=== PATIENT | female | born 1960 | race Caucasian/White ===

== ENCOUNTER 2020-07-16 08:44 | Emergency (ER) | payer OTHER ==
[~2020-07-16] VITALS: Ht 170.2 cm; Wt 90.0 kg
--- NOTE | 2020-07-16 09:08 | NUR ---
PT BROUGHT BACK TO ROOM FROM TRIAGE. PT CO LOW BACK/FLANK PAIN X3 DAYS. PT STATES IT HURTS TO SIT AND SHE IS UNABLE TO SLEEP AT NIGHT BECAUSE OF THE PAIN. PT DENIES ANY NUMBNESS/TINGLING, WEAKNESS OR ANY PAINFUL/BLOODY URINATION.
[2020-07-16] MEDS ORDERED: CYCLOBENZAPRINE 10 MG TABLET PO ONE (09:30)
[2020-07-16] MEDS ORDERED: KETOROLAC 30 MG/1 ML IM ONE (09:30)
[2020-07-16] MEDS ORDERED: CYCLOBENZAPRINE 10 MG TABLET ONE (09:32)
[2020-07-16] MEDS ORDERED: KETOROLAC 30 MG/1 ML ONE (09:32)
[2020-07-16 09:41] LABS: BASOPHILS % (AUTO) 1 % (0-1); EOSINOPHILS % (AUTO) 2 % (1-7); LYMPHOCYTES % (AUTO) 33 % (22-44); MEAN CORPUSCULAR HEMOGLOBIN 30.3 pg (27.0-34.8); MEAN CORPUSCULAR HGB CONC 33.5 g/dL (32.4-35.8); MEAN PLATELET VOLUME 8.1 fL (7.4-10.4); MONOCYTES % (AUTO) 6 % (2-9); NEUTROPHILS % (AUTO) 57 % (42-75); PLATELET COUNT 238 x10^3/uL (130-400); RED CELL DISTRIBUTION WIDTH 13.4 % (9.6-15.2)
[2020-07-16 09:42] LABS: MD NO
[2020-07-16 09:48] LABS: MICROSCOPIC AUTO
[2020-07-16 09:51] LABS: ALBUMIN 3.9 g/dL (3.4-5.0); CALCIUM 8.7 mg/dL (8.5-10.1)
[2020-07-16 09:54] LABS: ALANINE AMINOTRANSFERASE 21 U/L (12-78); ALKALINE PHOSPHATASE 47 U/L (45-117); BILIRUBIN,TOTAL 0.5 mg/dL (0.2-1.0); CREATININE 0.64 mg/dL (0.55-1.02)
[2020-07-16 09:59] LABS: ANION GAP 5 mmol/L (5-15); CHLORIDE 111 mmol/L (98-107)
--- NOTE | 2020-07-16 10:15 | NUR ---
US AT BEDSIDE
[2020-07-16 10:30] VITALS: BP 137/72
--- NOTE | 2020-07-16 11:21 | NUR ---
DISCHARGE INSTRUCTIONS REVIEWED WITH PT. ALL QUESTIONS ANSWERED AT THIS TIME
== END 2020-07-16 11:24 | disposition home or self-care (01) ==
LOC: ED 09:16
DX: S39.012A Strain of muscle, fascia and tendon of lower back, initial encounter (principal); N30.00 Acute cystitis without hematuria; N12 Tubulo-interstitial nephritis, not specified as acute or chronic; X58.XXXA Exposure to other specified factors, initial encounter; Y93.89 Activity, other specified; Y92.89 Other specified places as the place of occurrence of the external cause; Y99.8 Other external cause status
CPT/HCPCS: 36415; 76700; 80053; 81001; 85025; 87077; 87086; 96372; 99284; J1885; 87186